=== PATIENT | female | born 1945 | race Caucasian/White ===

== ENCOUNTER → 2017-01-10 | Outpatient (CLI) | payer OTHER | LOC: FIMAGING 10:29 | PROVIDERS: ATTEND Physician Assistant | DX: Z12.31 Encounter for screening mammogram for malignant neoplasm of breast (principal); Z85.3 Personal history of malignant neoplasm of breast | CPT/HCPCS: G0202 ==

== ENCOUNTER 2017-11-22 17:02 | Observation (INO) | payer OTHER ==
[2017-11-22] MEDS ORDERED: POLYETHYLENE GLYCOL 3350 17 GM PKT PO PRN (18:06)
[2017-11-22] MEDS ORDERED: BISACODYL 10 MG SUPP PR PRN (18:06)
[2017-11-22] MEDS ORDERED: LACTULOSE 20 GM/30 ML UDCUP PO PRN (18:06)
[2017-11-22] MEDS ORDERED: ONDANSETRON 4 MG/2 ML VIAL IVP PRN ×3 (18:06→21:14)
[2017-11-22] MEDS ORDERED: MAGNESIUM HYDROXIDE 30 ML UDCUP PO PRN (18:06)
[2017-11-22] MEDS ORDERED: ONDANSETRON DISINTEGRATING 4 MG TAB PO PRN (18:06)
[2017-11-22] MEDS ORDERED: ACETAMINOPHEN 325 MG TAB PO PRN (18:06)
[2017-11-22] MEDS ORDERED: LR 1,000 ML IV ONE (18:28)
[2017-11-22] MEDS ORDERED: LIDOCAINE 1% 2 ML INJ ID PRN (18:28)
[2017-11-22] MEDS ORDERED: *PHM DO NOT USE-METRONIDAZOLE 5 MG/ML IV PED/NEWBORN SYR IV SCH (18:30)
[2017-11-22] MEDS ORDERED: LR 1,000 ML IV SCH (18:30)
--- NOTE | 2017-11-22 18:30 | SOAPPROG ---
SOAP Progress Note Assessment/Plan: Assessment: Plan: 11/22/17 18:36 Acute appendicitis: have contacted Dr. Duran who will take pt to surgery tonight. She is allergic to multiple antibx though tolerates azithromycin, biaxin, levaquin, cipro. Begin IV cipro, flagyl. Asthma/COPD: has chronic cough productive of sputum. O2 sat 89% in office this afternoon, which is not uncommon for her. Is on spiriva and symbicort daily, and proair prn. Will monitor closely, but not give additional steroid at this time unless needed. For now, will manage with neb treatments as needed. Uses nocturnal oxygen at 2L/min CAD: mild, asymptomatic disease. Agatston score 48.2 on last heart scan in 01/10 , with 1% annualized rate of progression. Hypertension: BP elevated, likely due to pain. Typically better controlled. Will continue irbesartan. 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 Followed by Dr. Pacheco. DVT prophylaxis: lovenox, heparin contraindicated, so will us SCDs. Dispo: anticipate greater than 2 MN, due to appendicitis, need for surgery. 11/22/17 18:47 11/22/17 18:49 Subjective: 72 yo woman with hx of asthma, inflammatory arthritis, breast cancer, mild CAD, and hypertension was seen in the office today c/o RLQ pain. Hadn't been feeling well for the last 2-3 days, then woke around 3am this morning with significant RLQ abdominal pain. No fever, but has had some chills. Mild nausea, no vomiting , diarrhea, constipation. No appetite. Last BM this morning. By the time she was seen this afternoon, her abdominal pain was more diffuse. CBC done in the office showed WBC of 17,000 with L shift. CMP was normal. CT of abdomen and pelvis with contrast showed acute appendicitis, so pt admitted directly to [facility]. She will bring copy of her CT scan on CD with her. Objective: Vital Signs Temp Pulse Resp BP Pulse Ox 37.2 C 112 H 18 182/108 H 93 11/22/17 17:49 11/22/17 17:49 11/22/17 17:49 11/22/17 17:49 11/22/17 17:49 General: uncomfortable appearing, NAD, well-developed, well-nourished, alert HEENT: NC/AT. PERRL, EOMI. R subconjunctival hemorrhage. Auditory canals clear, bilateral hearing aids. O/p without erythema Neck: supple, no masses, adenopathy Lungs: clear bilaterally Cardiovascular: Regular rhythm, mild tachycardia, no ectopy Abdomen: no bowel sounds, mildly distended but generally soft. Mild percussion tenderness RLQ. Diffusely tender with palpation, worse in RLQ. No rebound tenderness. Extremities: no clubbing, cyanosis, edema Skin: no rash Neurologic: alert, moving all extremities, no confusion ICD10 Worksheet Patient Problems: Problems Problem Status Onset Appendicitis Acute
[2017-11-22] MEDS ORDERED: BUPIVACAINE 0.5% 30 ML SDV ONE (18:33)
[2017-11-22] MEDS ORDERED: ceFAZolin 1 GM/5 ML SYR ONE (18:33)
[2017-11-22] MEDS ORDERED: HEPARIN 1000 UNIT/1 ML MDV ONE (18:33)
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
[2017-11-22] MEDS ORDERED: NON-FORMULARY NEW DRUG (Loratadine [Loratadine] 10 MG) PO PRN (18:55)
[2017-11-22] MEDS ORDERED: ACETAMINOPHEN 500 MG TAB PO PRN (18:55)
[2017-11-22] MEDS ORDERED: NON-FORMULARY NEW DRUG (Ranitidine Hcl [Zantac] 150 MG) PO PRN (18:55)
[2017-11-22] MEDS ORDERED: ALBUTEROL 60 PUFFS/8 GM MDI IH PRN (18:55)
[2017-11-22] MEDS ORDERED: traMADol 50 MG TAB PO PRN (18:57)
[2017-11-22] MEDS ORDERED: diphenhydrAMINE 25 MG CAP PO PRN (18:59)
[2017-11-22] MEDS ORDERED: MIDAZOLAM 2 MG/2 ML VIAL IVP ONE (19:16)
[2017-11-22] MEDS ORDERED: FAMOTIDINE 20 MG TAB PO PRN (19:17)
[2017-11-22] MEDS ORDERED: CETIRIZINE 10 MG TAB PO PRN (19:18)
[2017-11-22] MEDS ORDERED: LIDOCAINE 2% 5 ML SDV ONE (19:28)
[2017-11-22] MEDS ORDERED: PROPOFOL/EMULSION 500 MG/50 ML BOTTLE IV ONE (19:28)
[2017-11-22] MEDS ORDERED: fentaNYL 250 MCG/5 ML INJ ONE (19:28)
[2017-11-22] MEDS ORDERED: ONDANSETRON 4 MG/2 ML VIAL ONE (19:29)
[2017-11-22] MEDS ORDERED: DEXAMETHASONE 4 MG/ML VIAL ONE (19:29)
[2017-11-22] MEDS ORDERED: ROCURONIUM 50 MG/5 ML VIAL ONE (19:29)
[2017-11-22] MEDS ORDERED: GLYCOPYRROLATE 0.2 MG/1 ML VIAL ONE (19:29)
[2017-11-22] MEDS ORDERED: PETROLAT,WHT/MIN OIL/SOD CHL 3.5 GM OPHT.OINT ONE (19:36)
[2017-11-22] MEDS ORDERED: MIDAZOLAM 2 MG/2 ML VIAL ONE (19:36)
--- NOTE | 2017-11-22 19:41 | PDGENHP ---
History & Physical Chief Complaint: APPENDICITIS History of Present Illness: 72 FEMALE WITH ACUTE APPE SEEN ON CT SCAN. WBC 17K. PAIN X 2DAYS WITH NAUSEA BUT NO DIARHEA OR EMESIS. RISKS AND OPTIONS FULLY DISCUSSED AND SHE IS ADMITTED FOR LAP APPE Pertinent Past, Social, Family History: PHX COPD/ BREAST BX. FAM HX NONCONTRIBUTORY. ROS - 10 PT REVIEW/ SHE DOES NOT SMOKE. ALL: MULTIPLE. MEDS MELOXICAM Relevant Physical Exam: 72 FEMALE IN NO ACUTE DISTRESS, AFEBRILE. HEENT: NONICTERIC BUT SOME SCLERAL INJECTION, NO ADENOPATHY, NO THYROMEGALY, NO BRUITS. COR RR. CHEST SOME RHONCHI BUT NO WHEEZING, SYMMETRIC. ABD: SOFT, TENDER RLQ WITH GUARDING, NO MASSES OR HERNIAS. EXTREM: FULL PULSES AND FULL ROM. NEURO SYMMETRICAND PHYSIOLOGIC. PYSCH: ALERT, COOPERATIVE AND ORIENTED Cardiorespiratory Assessment: IMP: ACUTE APPE. PLAN LAP APPE/ RISKS AND OPTIONS FULLY DISCUSSED
[2017-11-22] MEDS ORDERED: IRBESARTAN 150 MG TAB PO SCH (20:00)
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
[2017-11-22] MEDS ORDERED: PHENYLEPHRINE HCL 100 MCG/ML SYR ONE (20:16)
[2017-11-22] MEDS ORDERED: ERTAPENEM 1 GM VIAL ONE (20:34)
[2017-11-22] MEDS ORDERED: ERTAPENEM 1 GM VIAL IV ONE (20:45)
[2017-11-22] MEDS ORDERED: SUGAMMADEX SODIUM 200 MG/2 ML VIAL IVP ONE (20:54)
[2017-11-22] MEDS ORDERED: CIPROFLOXACIN 400 MG/DEXTROSE 200 ML IV SCH (21:00)
[2017-11-22] MEDS ORDERED: HYDROmorphone HCL/NS 0.5 MG/ML SYR IVP PRN (21:04)
[2017-11-22] MEDS ORDERED: OXYCODONE/APAP 5/325 TAB PO PRN (21:04)
--- NOTE | 2017-11-22 21:04 | POSTOPPROG ---
Post Op Note Date of Operation: 11/22/17 Surgeon: Anam Duran Anesthesiologist: RADHA Anesthesia: GET(General Endotracheal) Pre-op Diagnosis: ACUTE APPENDICITIS Post-op Diagnosis: SAME Indication: SAME Procedure: LAP APPY Findings: MARKEDLY INFLAMED BUT NOT PERFORATED APPENDICITIS Inf/Abcess present in the surg proc area at time of surgery?: Yes Depth: Organ Space EBL: Minimal Complications: NONE Specimen(s): APPENDIX
[2017-11-22] MEDS ORDERED: NALOXONE HCL 0.4 MG/ML INJ IVP PRN (21:14)
[2017-11-22] MEDS ORDERED: HYDROmorphONE/DILAUDID 2 MG/ML INJ IVP PRN (21:14)
[2017-11-22] MEDS ORDERED: fentaNYL 100 MCG/2 ML INJ IVP PRN (21:14)
[2017-11-22] MEDS ORDERED: LABETALOL HCL 5 MG/ML 20 ML MDV IVP PRN (21:14)
[2017-11-22] MEDS: BUDESONIDE/FORMOTEROL 160/4.5 60 PUFFS/MDI IH SCH (21:15)
[2017-11-22] MEDS ORDERED: D5W 1/2 NS W/ 20 KCl/L 1,000 ML IV SCH (21:15)
[2017-11-22] MEDS: SENNOSIDES/DOCUSATE SODIUM TAB PO SCH (22:09)
[2017-11-22] MEDS: IRBESARTAN 150 MG TAB PO SCH (22:17)
[2017-11-23] MEDS: KETOROLAC 15 MG/1 ML SDV IVP SCH ×4 (00:52→18:13)
[2017-11-23 04:59] LABS: PLATELET COUNT 280 10^3/uL (150-400)
--- NOTE | 2017-11-23 08:39 | SOAPPROG ---
SOAP Progress Note Assessment/Plan: Assessment: Plan: 11/23/17 08:37 acute appendicitis. doing well this am. It looks like she has had invanz x1 pre-op and flagyl. Message to Dr Duran regarding need for antibiotics at this time. Breakfast ordered. Anticipate d/c later today. Subjective: Lucille states she feels much better. No SOB, minimal stable cough. No CP/ palpitations. She has ordered breakfast. No flatus yet. Minimal abdominal pain from incisions. Objective: Vital Signs Temp Pulse Resp BP Pulse Ox 36.9 C 77 16 128/70 H 93 11/23/17 07:41 11/23/17 07:41 11/23/17 07:41 11/23/17 07:41 11/23/17 07:41 Laboratory Results 11/23/17 04:45 11/22/17 11/23/17 11/24/17 05:59 05:59 05:59 Intake Total 2155 Output Total 20 Balance 2135 Gen: Bright, NAD Lungs: stable diminished BS Heart: RRR BP improved Abd + bs soft, laparoscopic incisions look great. LE's 2/4 PT's no edema WBC 17-->11 ICD10 Worksheet Patient Problems: Problems Problem Status Onset Appendicitis Acute - ICD10 Problem Qualifiers (1) Appendicitis
[2017-11-23] MEDS ORDERED: Herbals/Supplements -Info Only PO SCH (09:00)
[2017-11-23] MEDS ORDERED: CHOLECALCIFEROL VIT D3 1,000 UNITS TAB PO SCH (09:00)
[2017-11-23] MEDS ORDERED: TIOTROPIUM INHALER 18 MCG/DOSE 5 DOSE/MDI IH SCH (09:00)
[2017-11-23] MEDS: SENNOSIDES/DOCUSATE SODIUM TAB PO SCH (09:02)
[2017-11-23] MEDS: BUDESONIDE/FORMOTEROL 160/4.5 60 PUFFS/MDI IH SCH (09:45)
--- NOTE | 2017-11-23 11:07 | ASMTCMCOM ---
CM Note CM Note Notes: Spoke w/RN, anticipate pt will dc home w/support of familly when medically stable. No therapies ordered, CM available for any changes. DC Plan: Independent Date Signed: 11/23/2017 11:06 AM Electronically Signed By:Kailee Beck RN
[2017-11-23] MEDS: IRBESARTAN 150 MG TAB PO SCH (12:09)
--- NOTE | 2017-11-23 12:21 | POSTANESTH ---
Post Anesthetic Evaluation Cardiovascular Status: Similar to Pre-Op Cond Respiratory Status: Similar to Pre-op Cond. Level of Consciousness/Mental Status: Can Participate in Eval Pain Control: Adequate, Prn Tx Ordered Nausea/Vomiting Control: Adequate, Prn Tx Ordered Complications Possibly Related to Anesthesia: None Noted
[2017-11-23] MEDS ORDERED: ERTAPENEM 1 GM VIAL IV SCH (14:45)
[2017-11-23 15:56] VITALS: BP 154/92
[2017-11-23] MEDS ORDERED: METOPROLOL SUCCINATE XR 50 MG TAB PO SCH (18:00)
[2017-11-23] MEDS ORDERED: HYDROXYCHLOROQUINE SULFATE 200 MG TAB PO SCH (18:00)
--- NOTE | 2017-11-23 18:01 | SOAPPROG ---
SOAP Progress Note Assessment/Plan: Assessment: 72 y/o F s/p lap appy 11/22 S: Doing well over all. Not passing flatus or BMs yet. Pain well controlled on oral pain meds. O: Alert Afebrile Cardiac: RRR Lungs: CTA bilaterally Abdomen: soft, moderately distended, incisions cdi, hypoactive bowel sounds Plan: Most likely discharge tomorrow. 11/23/17 17:58 Objective: Vital Signs Temp Pulse Resp BP Pulse Ox 36.6 C 108 H 16 154/92 H 97 11/23/17 15:54 11/23/17 15:54 11/23/17 15:54 11/23/17 15:54 11/23/17 15:54 Laboratory Results 11/23/17 04:45 11/22/17 11/23/17 11/24/17 05:59 05:59 05:59 Intake Total 2155 Output Total 20 Balance 2135 ICD10 Worksheet Patient Problems: Problems Problem Status Onset Appendicitis Acute
--- NOTE | 2017-11-23 18:03 | SOAPPROG ---
SOAP Progress Note Assessment/Plan: Assessment: Plan: 11/23/17 08:37 acute appendicitis. doing well this am. It looks like she has had invanz x1 pre-op and flagyl. Message to Dr Duran regarding need for antibiotics at this time. Breakfast ordered. Anticipate d/c later today. 11/23/17 18:02 patient with likely allergy to flagyl from earlier today. She is feeling better after benadryl. She is mildly tachy, will give a single dose of metoprolol now and then plan on d/c home. She otherwise is feeling well. She ate dinner it is sitting well. Objective: Vital Signs Temp Pulse Resp BP Pulse Ox 36.6 C 108 H 16 154/92 H 97 11/23/17 15:54 11/23/17 15:54 11/23/17 15:54 11/23/17 15:54 11/23/17 15:54 Laboratory Results 11/23/17 04:45 11/22/17 11/23/17 11/24/17 05:59 05:59 05:59 Intake Total 2155 Output Total 20 Balance 2135 ICD10 Worksheet Patient Problems: Problems Problem Status Onset Appendicitis Acute - ICD10 Problem Qualifiers (1) Appendicitis
--- NOTE | 2017-11-23 18:54 | GDS ---
[f rep st] DISCHARGE SUMMARY PURPOSE FOR ADMISSION: Acute appendicitis. DISCHARGE DIAGNOSIS: Acute appendicitis. HOSPITAL COURSE: Patient was admitted due to increasing right lower quadrant pain. She had a CT per formed at our office, which identified appendicitis. She had surgical consultation with Dr. Anam Duran. Surgery was performed yesterday evening. Her appendix was quite inflamed but not perforated. She received a dose of Invanz prior to surgery and a dose of Flagyl. She had a dose of Flagyl midd ay today and probably had some sense of an allergic reaction to it with some flushing, tachycardia, a nd nausea. This was treated with Benadryl with good success. She had a dose of Invanz later today, which she seems to have tolerated well. She has had some elevation of her blood pressure and heart r ate. A dose of metoprolol will be given today before she goes home. She will continue on oxygen sup port with portable oxygen to get from hospital to home, and then she has a concentrator at home. She will be followed closely. Anticipate further blood work and serial exams to make sure she is healin g appropriately. /[id number]/MODL
--- NOTE | 2017-11-28 04:36 | GOP ---
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 ANESTHESIOLOGIST: Dr. Dong. PREOPERATIVE DIAGNOSIS: Acute appendicitis. POSTOPERATIVE DIAGNOSIS: Acute appendicitis. PROCEDURE PERFORMED: Laparoscopic appendectomy. FINDINGS: Patient was found to have a markedly inflamed, but not perforated, appendicitis in a retro cecal position. ESTIMATED BLOOD LOSS: Negligible. DESCRIPTION OF PROCEDURE: Patient taken to the operating room where she received satisfactory genera l endotracheal anesthesia by Dr. Dong. Placed in the supine position. Prepped and draped in the u sual sterile fashion. A periumbilical incision was made. A Veress needle inserted. Pneumoperitoneu m was established. Trocar was introduced. Laparoscope introduced. Good visualization was obtained. Two other trocars were placed in the midline under direct vision. The cecum was rotated medially. The appendix was identified. It was freed up from the retroperitoneal place by dividing the lateral peritoneal reflection and elevating the appendix up. The mesoappendix was carefully dissected free with the Harmonic Scalpel with care to avoid injury to the wall of the cecum. The appendix was quite thickened and inflamed and had tucked underneath the cecum. The rest of this was skeletonized back to the colonic juncture where it was divided with an Endo-ROBERT stapler, placed in a specimen bag and e xtracted through the upper midline port site. Wound was irrigated. Hemostasis was assured. Trocars removed under direct vision. Trocar sites were closed with 0 Vicryl for the fascia, 4-0 Monocryl fo r the skin. All layers infiltrated with 0.5% Marcaine. COMPLICATIONS: None. /[id number]/MODL
== END 2017-11-23 18:35 | disposition home or self-care (01) ==
LOC: F3E 17:29 → OBSVTOIN 17:29 → INTOOBSV 17:29
PROVIDERS: ADMIT Internal Medicine; ATTEND Internal Medicine
PROC: 0DTJ4ZZ Resection of Appendix, Percutaneous Endoscopic Approach (ICD-10-PCS; principal; 2017-11-22 18:30)
DX: K35.80 Unspecified acute appendicitis (principal); T36.8X5A Adverse effect of other systemic antibiotics, initial encounter; I10 Essential (primary) hypertension; I25.10 Atherosclerotic heart disease of native coronary artery without angina pectoris; Z85.3 Personal history of malignant neoplasm of breast; J45.909 Unspecified asthma, uncomplicated; G47.33 Obstructive sleep apnea (adult) (pediatric); Z87.820 Personal history of traumatic brain injury; Z88.1 Allergy status to other antibiotic agents; Z99.81 Dependence on supplemental oxygen; M13.0 Polyarthritis, unspecified
CPT/HCPCS: 44970; 88304; G0378; J0690; J1100; J1335; J1885; J2250; J2370; J2405; J2704; J3010

== ENCOUNTER → 2019-02-05 | Outpatient (CLI) | payer OTHER | LOC: FIMAGING 09:42 ==